=== PATIENT | male | born 1960 | race Caucasian/White ===

== ENCOUNTER 2016-10-08 09:00 | Inpatient (IN) | payer OTHER ==
[~2016-10-08] VITALS: Ht 182.9 cm; Wt 95.2 kg
--- NOTE | ~2016-10-08 | HP ---
PATIENT'S NAME: SUSAN AGUIRRECENTERVILLE AGE: 56 Y [address] ROOM: [address] [place] [id number] LOCATION: [facility] ADMIT DATE: 10/22/2016 History & Physical DISCHARGE DATE: FAMILY PHYSICIAN: Issac Finnegan MD ATTENDING PHYSICIAN: GIGI FERMIN DATE OF SERVICE: CHIEF COMPLAINT: Right knee pain. HISTORY OF PRESENT ILLNESS: The patient is a 56-year-old male who was admitted to the hospital. Today, day of admission to the care of Dr. Gigi Fermin for the diagnosis of end- stage DJD, right knee. I have been asked to see him for postop care and pain management. When I see him, he is not complaining of pain. He has no nausea or vomiting, and he has undergone a successful uncomplicated right total knee arthroplasty for end-stage DJD, right knee. CURRENT MEDICATIONS: 1. Aspirin 325. 2. Glucosamine. 3. Multivitamins. 4. Claritin-D. 5. Vitamin B12 of 25 mg a day. 6. Krill oil. 7. [place]-3. 8. Tylenol. 9. Ibuprofen. 10. Norvasc 2.5 mg a day. 11. Psyllium. ALLERGIES TO MEDICATIONS: No known drug allergies. SOCIAL HISTORY: Never smoked. IMMUNIZATIONS STATUS: Unknown. FAMILY HISTORY: No family history of bleeding disorder or problem with general anesthesia. PATIENT'S NAME: LISET AGUIRRE [facility] AGE: 56 Y [address] ROOM: [facility] [place] [address] LOCATION: [facility] ADMIT DATE: 10/22/2016 History & Physical DISCHARGE DATE: FAMILY PHYSICIAN: Issac Finnegan MD ATTENDING PHYSICIAN: GIGI FERMIN REVIEW OF SYSTEMS: Positive for hypertension, essential. Generalized osteoarthritis, history of previous lumbar spinal fusion for lumbar disk disease. Personal history of previous pulmonary embolus, hypertension and allergic rhinitis. PHYSICAL EXAMINATION: GENERAL: Pleasant dark haired male who appears his stated age. He is oriented x3 and competent. HEENT: Shows pupils reactive to light. TMs normal. Posterior pharynx clear. NECK: Unremarkable. LUNGS: Clear. HEART: No murmur. ABDOMEN: Benign. EXTREMITIES: Dressing on right knee. NEUROLOGIC: Grossly intact. ASSESSMENT: 1. End-stage degenerative joint disease, right knee. 2. Status post right total knee arthroplasty today. 3. Hypertension, essential. 4. Prior history of pulmonary emboli. 5. Osteoarthritis generalized in both knees. 6. Lumbar disk disease status post lumbar fusion. 7. Allergic rhinitis. PLAN: Follow daily. MD ALEIDA NEVILLE/dominick /[id number] D: [id number] T: 022 HISTORY & PHYSICAL
--- NOTE | ~2016-10-08 | OR ---
PATIENT'S NAME: LISET AGUIRRE [facility] AGE: 56 Y [address] ROOM: [place] [address] LOCATION: [facility] ADMIT DATE: 10/22/2016 OR/Procedure Report DISCHARGE DATE: FAMILY PHYSICIAN: Issac Finnegan MD ATTENDING PHYSICIAN: GIGI FERMIN SURGEON: Gigi Fermin DO BINDERY HELPER: DATE OF PROCEDURE: 10/22/2016 PREOPERATIVE DIAGNOSIS: Right knee degenerative arthritis. POSTOPERATIVE DIAGNOSIS: Right knee degenerative arthritis. OPERATION PERFORMED: Right total knee arthroplasty, cemented tibia and femur, using medial parapatellar/subvastus approach. PHOTOGRAPHIC ARTIST: None. TOURNIQUET TIME: 47 minutes. ANESTHESIA: Spinal. HARDWARE: Simon Persona Knee System, patient's specific implants. Femur size 11, tibia size 8 cemented. Patelloplasty was performed and not resurfaced. Polyethylene size 10. COMPLICATIONS: None. ANTIBIOTICS: Given. TIMEOUT: Performed. 1 gram IV tranexamic acid given on incision, second gram topically at closure. SPECIMENS: None. ESTIMATED BLOOD LOSS: Less than 50 mL. HISTORY: This is a pleasant, 56-year-old, has persistent knee pain, has failed conservative therapy including physical therapy, braces, and injections. The patient continues to suffer pain and fails activities of daily living. It is limiting quality of life and ADLs. We had a discussion regarding further treatment options as the patient has failed all conservative care. The patient wished to proceed with total knee arthroplasty. The risks, benefits, goals and potential complications were discussed. The patient had PATIENT'S NAME: LISET AGUIRRE [facility] AGE: 56 Y [address] ROOM: [place] [address] LOCATION: [facility] ADMIT DATE: 10/22/2016 OR/Procedure Report DISCHARGE DATE: FAMILY PHYSICIAN: Issac Finnegan MD ATTENDING PHYSICIAN: GIGI FERMIN been through the total joint course and reviewed our online resources in [facility] and then given written handout with the explanations, risks, benefits, and potential treatment complications. Consent signed on the chart. The patient understands the risk of implant recalls; potential for infection up to 2% including deep infection, this could result in multiple surgeries of explant antibiotic spacers and third surgery. The patient understands the risk of fractures; neurovascular injury; damage to arteries, nerves, muscles, tendons; loss of motion; pain; potential to develop a DVT, which could lead to pulmonary embolus and even . The patient has been well informed of the treatment options, risks, benefits, and chance of complications. The patient elects to proceed. DESCRIPTION OF PROCEDURE: The patient was brought back to the operating room theater under anesthesia. The patient was prepped and draped in the usual sterile fashion with the leg exsanguinated and tourniquet inflated. A midline incision starting from the medial aspect of the tibial tubercle approximately 3 fingerbreadths above the superior pole of the patella. Medial parapatellar arthrotomy with subvastus approach exposed the deep capsule. The deep medial capsule was elevated off the medial side of the tibia based on whether they are varus or valgus. Fat pad removed with careful attention not to injure the patellar tendon and the anterior horns of the medial and lateral meniscus were removed. ACL was sacrificed and a retractor was placed protecting the medial and lateral collateral ligaments. The distal cutting block put in position. Appropriate resection taken off the distal femur. After confirmed positioning, slope, proximal tibia resected. Careful attention protecting the collateral ligaments, patellar tendon with bicondylar smooth and dual PCL retractor placed to protect the posterior structures. We then placed a spacer block to confirm adequate bony resections with extension gap. Medial and lateral compartments were cleaned out of any meniscus and soft tissue protecting the collaterals, popliteus, and posterior structures. The anterior and posterior chamfer cuts were made confirming no notching anteriorly. Bony osteophytes removed. A trial femur was placed and using a poly, I floated the tibia confirming intact collateral ligaments and good balancing. If any further releases were needed, those were performed. I confirmed there were no posterior osteophytes of the distal femur, floating technique, I marked the position of the tibia. Final preparation of the femur with lug holes drilled. I then removed the trial femur, placed the tibia, and confirmed axial alignment with PSI and the floating technique. Once satisfied, the trial tibial plate was locked into place confirming with drop radha appropriate alignment and slope. The final tibia was drilled and cruciate punch performed. With the trials in place, went through range of motion, confirming excellent stability with varus/valgus stress and good stability at 0, 30, and 90 degrees of motion. I confirmed the patella was well tracking after osteophytes removed. A patelloplasty was performed with no resurfacing. All trials were then removed. The bone was pulsatiled to clean and dry surface. PATIENT'S NAME: LISET AGUIRRE [facility] AGE: 56 Y [address] ROOM: [place] [address] LOCATION: [facility] ADMIT DATE: 10/22/2016 OR/Procedure Report DISCHARGE DATE: FAMILY PHYSICIAN: Issac Finnegan MD ATTENDING PHYSICIAN: GIGI FERMIN Exparejuan cocktail using multiple stabs with careful aspiration not to inject intravascularly, staying away from the lateral compartment as to not cause foot drop. The tibia was placed followed by femur, held in full extension with trial poly. Excess cement removed. Reconfirmed stability with trial poly. If PCL well functioning, I used a 10 mm medial congruent poly; if PCL at risk for deficiency, a deep-dish polyethylene used. Once the trial poly was removed, confirmed all cement was hardened and excess cement removed. Range of motion confirmed again prior to final poly being locked into place. Aquamantys was used to establish hemostasis with tourniquet deployed. Final poly locked into place. Hemostasis achieved. Wound closure involved #2 Vicryl in a [id number] pattern along the capsulotomy followed by #2 Quill, Monocryl in a simple buried pattern followed by V-Loc Dermabond. Once the Dermabond cured, the staff placed a Mepilex dressing followed by pulling the thigh-high THOR hose over the wound and insulating the skin to prevent soft tissue cold injury from the PolarCare. Please note that SCDs and THOR hose started preop in the recovery room, continued on the nonoperative site to prevent DVT. Sponge and needle counts were reported correct x3. The patient will be followed by hospitalist, allowed to weight bear as tolerated, with encouraged physical therapy. On the day of surgery, continue prophylactic antibiotics for the first 24 hours. Continue DVT prophylaxis with SCDs, foot pumps, and THOR hose. Unless contraindicated, they will start full-strength aspirin within 23 hours and continue for a month. GIGI FERMIN DO PH/modl /[id number] d: 10/22/16 1112 t: 10/31/16 1121, OPERATIVE SUMMARY
--- NOTE | ~2016-10-08 | DS ---
PATIENT'S NAME: LISET AGUIRRE [facility] AGE: 56 Y [address] ROOM: [id number] [place], [place] [address] LOCATION: [facility] ADMIT DATE: 10/22/2016 Discharge Summary DISCHARGE DATE: 10/24/2016 FAMILY PHYSICIAN: Issac Finnegan MD ATTENDING PHYSICIAN: Gigi Fermin FINAL DIAGNOSES: Right knee osteoarthritis, status post total knee replacement. HOSPITAL COURSE: The patient underwent a successful total knee arthroplasty without complication. He was followed by the Dr. House for medical management. He was discharged home with continued outpatient physical therapy, continued DVT prophylaxis, written instructions for observation of potential for DVTs, instructions on the use of THOR hose, DVT, and chemoprophylaxis. He had no signs of infections. He is to notify us if he has any wound drainage, fever, chills, or signs of infection. He will continue outpatient therapy and pain management with prescriptions provided. GIGI FERMIN DO PH/modl /[id number] d: 10/31/16 1803 t: 11/12/16 0729, DISCHARGE SUMMARY
[~2016-10-08 09:00] MED LIST: ADVIL200 MG PO; ASPIRIN325 MG PO; CLARITIN D 24HR1 TAB PO; DULCOLAX10 MG R; FISH OIL WITH1 EACH PO; FOLIC ACID1 MG PO; GLUCOSAMINE HC500 MG PO; LORATADINE PO; METAMUCIL660 GM PO; MILK OF MA400 MG/5 M PO; MUCINEX PO; MULTIVITAMINS1 EAC1 PO; NORCO 10-325 T1 EACH PO; NORVASC2.5 MG PO; OMEGA 3 PO; PSE PO; SOMA350 M1 PO; THIAMINE HCL100 MG PO; TYLENOL EXTRA500 MG PO; VITAMIN B122500 MCG PO
[2016-10-23 05:37] LABS: HEMATOCRIT 38.6 % (37.0-53.0)
[2016-10-24] MEDS ORDERED: TYLENOL EXTRA500 MG PO (10:01)
[2016-10-24] MEDS ORDERED: ECOTRIN325 MG PO (10:02)
[2016-10-24] MEDS ORDERED: CELEBREX200 MG PO (10:03)
[2016-10-24] MEDS ORDERED: COLACE100 MG PO (10:04)
[2016-10-24] MEDS ORDERED: PEPCID40 MG PO (10:05)
[2016-10-24] MEDS ORDERED: MIRALAX17 GM PO (10:08)
[2016-10-24] MEDS ORDERED: LYRICA 75MG CAP75 MG PO (10:08)
[2016-10-24] MEDS ORDERED: XARELTO10 MG PO (10:10)
[2016-10-24] MEDS ORDERED: DILAUDID 2MG(HYD2 MG PO (10:11)
== END 2016-10-24 14:00 | disposition disaster alternative care site (69) | DRG 470 ==
LOC: G3N 10-22 05:59
PROVIDERS: ADMIT Orthopaedic Surgery
PROC: 0SRC0J9 Replacement of Right Knee Joint with Synthetic Substitute, Cemented, Open Approach (ICD-10-PCS; principal; 2016-10-22)
DX: M17.0 Bilateral primary osteoarthritis of knee (principal); I10 Essential (primary) hypertension; M47.9 Spondylosis, unspecified; Z86.711 Personal history of pulmonary embolism; J30.9 Allergic rhinitis, unspecified; Z79.82 Long term (current) use of aspirin; Z98.1 Arthrodesis status
CPT/HCPCS: C1713; C1776; J0690; J1170; J2795; J7120

== ENCOUNTER → 2016-10-10 | Outpatient (CLI) | payer OTHER ==
[~2016-10-10] MED LIST changes: +CELEBREX200 MG PO; +COLACE100 MG PO; +DILAUDID 2MG(HYD2 MG PO; +ECOTRIN325 MG PO; +LYRICA 75MG CAP75 MG PO; +MIRALAX17 GM PO; +PEPCID40 MG PO; +XARELTO10 MG PO
== END | disposition disaster alternative care site (69) ==
LOC: GNJRC 10:27
DX: Z01.818 Encounter for other preprocedural examination (principal)

== ENCOUNTER → 2016-12-25 | Outpatient (CLI) | payer OTHER ==
[2016-12-25 16:20] LABS: BASOPHIL % 0.2 %; EOSINOPHIL # 0.1 K/uL (0.0-0.5); HEMATOCRIT 40.6 % (37.0-53.0); HEMOGLOBIN 13.5 g/dL (12.0-17.0); IMMATURE GRANULOCYTE % 0.2 %; LYMPHOCYTE # 1.6 K/uL (0.8-4.0); LYMPHOCYTE % 31.2 %; MCH 30.8 pg (27.0-34.0); MCHC 33.3 gm/dL (32.0-36.5); MCV 92.7 fl (83.0-98.0); MONOCYTE # 0.6 K/uL (0.0-1.0); MONOCYTE % 12.7 %; MPV 9.3 fl (9.4-12.4); NEUTROPHIL # (ANC) 2.8 K/uL (1.4-9.0); NEUTROPHIL % 54.7 %; NRBC % 0 /100WBC (0-0.00); PLATELET COUNT 209 K/uL (150-450); RBC 4.38 M/uL (4.00-6.00); RDW-CV 12.8 % (11.9-14.6)
== END ==
LOC: GLAB 15:51
PROVIDERS: Orthopaedic Surgery
DX: M25.461 Effusion, right knee (principal); Z96.651 Presence of right artificial knee joint